=== PATIENT | female | born 1960 | race Caucasian/White ===

== ENCOUNTER 2022-11-27 19:54 | Emergency (ER) | payer SELFPAY ==
[~2022-11-27] VITALS: Ht 152.4 cm; Wt 72.7 kg
[2022-11-27 20:00] VITALS: BP 181/94
[2022-11-27] MEDS ORDERED: morphine 4 MG/ML inj SYRINge IV ONE (22:40)
[2022-11-27] MEDS ORDERED: ondansetron/PF 4mg/2ml inj IV ONE (22:40)
[2022-11-27] MEDS ORDERED: normal saline 1000ML IV soln IVB ONE (22:40)
[2022-11-27 22:45] LABS: BASOPHILS % (AUTO) 0.3 % (0-1); EOSINOPHILS % (AUTO) 0.1 % (0-6); HEMATOCRIT 41.2 % (35.0-45.0); HEMOGLOBIN 13.6 g/dl (12.0-16.0); LYMPHOCYTES % (AUTO) 6.5 % (21-51); MEAN CORPUSCULAR HEMOGLOBIN 28.4 PG (27.0-31.0); MEAN CORPUSCULAR VOLUME 86.2 FL (78-98); MEAN PLATELET VOLUME 7.4 FL (7.4-10.4); MONOCYTES # (AUTO) 0.9 X10'3 (0-0.9); NEUTROPHILS # (AUTO) 13.1 X10'3 (1.8-7.7); NEUTROPHILS % (AUTO) 87.1 % (42-75); PLATELET COUNT 298 X10'3 (140-440); RED BLOOD COUNT 4.77 X10'6 (4.20-5.60); RED CELL DISTRIBUTION WIDTH 14.5 % (11.5-14.5); WHITE BLOOD COUNT 15.1 X10'3 (4.5-11.0)
[2022-11-27 23:09] LABS: ALANINE AMINOTRANSFERASE 37 U/L (12-78); ALBUMIN 4.2 G/DL (3.4-5.0); ALBUMIN/GLOBULIN RATIO 1.2 (1.1-1.5); ALKALINE PHOSPHATASE 88 IU/L (46-116); ANION GAP 11 (8-16); ASPARTATE AMINO TRANSFERASE 24 U/L (10-37); BILIRUBIN,TOTAL 0.4 MG/DL (0.1-1.0); BLOOD UREA NITROGEN 14 MG/DL (7-18); BUN/CREATININE RATIO 12.5 (10.0-20.0); CHLORIDE 106 MMOL/L (99-107); CREATININE 1.12 MG/DL (0.40-0.90); GLUCOSE 159 MG/DL (70-104); LIPASE 106 U/L (73-393); POTASSIUM 3.9 MMOL/L (3.5-5.1); SODIUM 141 MMOL/L (135-145); TOTAL CARBON DIOXIDE 23.8 MMOL/L (24-32); TOTAL PROTEIN 7.7 G/DL (6.4-8.2); eGFR 49 ML/MIN
[2022-11-27] MEDS ORDERED: ketorolac trometh. 30mg/ml inj. IM STA (23:27)
[2022-11-28] MEDS ORDERED: HYDR-3965 PO (01:20)
[2022-11-28] MEDS ORDERED: ONDA4TAB12 PO (01:20)
[2022-11-28] MEDS ORDERED: IBUP-1984 PO (01:20)
[2022-11-28] MEDS ORDERED: FLO0.4C PO (01:20)
[2022-11-28 01:41] LABS: CLARITY,URINE SLIGHTLY CLOUDY (Clear); GLUCOSE, URINE NEGATIVE (Neg); KETONES,URINE 15 mg/dl (Neg); LEUKOCYTE ESTERASE ,URINE NEGATIVE (Neg); NITRITES, URINE NEGATIVE (Neg); OCCULT BLOOD,URINE MODERATE (Neg); PH,URINE 6.5 (4.8-8.0); PROTEIN,URINE NEGATIVE (Neg); UROBILINOGEN,URINE 0.2 E.U/dL (0.2-1.0)
[2022-11-28 01:45] LABS: COLOR,URINE DARK YELLOW (Yellow); UA COLLECTION TYPE CLN CATCH MIDSTREAM
[2022-11-28 01:53] LABS: BACTERIA,URINE NONE SEEN /HPF (Neg); MUCUS STRANDS FEW /LPF (Neg); SQUAMOUS EPITHELIAL CELL,UR FEW /LPF (FEW); WBC,URINE 0-4 /HPF (0-4)
[2022-11-28 01:54] LABS: CAL OXALATE CRYSTALS FEW /HPF (NEGATIVE); RBC,URINE TNTC /HPF (0-2)
--- NOTE | 2022-11-28 02:10 | NUR ---
iv dc'd pt being discharged dressing applied
== END 2022-11-28 02:11 | disposition home or self-care (01) ==
LOC: ER 19:55
DX: N20.1 Calculus of ureter (principal); N13.30 Unspecified hydronephrosis; Z79.899 Other long term (current) drug therapy
CPT/HCPCS: 74176; 80053; 81001; 83690; 85025; 96372; 96374; 96375; 99285; J1885; J2270; J2405; J7030